=== PATIENT | female | born 1990 | race Native Hawaiian/Other Pacific Islander ===

== ENCOUNTER 2022-12-07 07:11 | Emergency (ER) | payer MEDICAID ==
[~2022-12-07] VITALS: Ht 154.9 cm; Wt 66.7 kg
[2022-12-07 07:48] LABS: MEAN CORPUSCULAR HEMOGLOBIN 30.9 uug (24.7-32.8); PLATELET COUNT (AUTO) 630 K/uL (179-408)
[2022-12-07 07:51] LABS: *BILIRUBIN,URIN NEGATIVE (NEGATIVE); *BLOOD, URINE 2+ (NEGATIVE); *CLARITY,URINE CLEAR (CLEAR); *COLOR,URINE YELLOW (YELLOW); *KETONES,URINE NEGATIVE (NEGATIVE); *UROBILINOGEN,URINE 0.2 E.U./dl (NORMAL); LEUKOCYTE ESTERASE ,URINE 1+ (NEGATIVE); NITRITE, URINE NEGATIVE (NEGATIVE); UGLUCOSE NEGATIVE (NEGATIVE)
[2022-12-07 07:56] LABS: *URINE HCG, QUAL NEG (NEGATIVE)
[2022-12-07 07:57] LABS: CREATININE 0.9 mg/dL (0.6-1.3); POTASSIUM 4.6 mmol/L (3.5-5.1)
[2022-12-07] MEDS ORDERED: IV NORMAL SALINE 1000 ML BAG IV ONE (08:15)
[2022-12-07] MEDS ORDERED: MEDR10TA3 PO (09:41)
[2022-12-07] MEDS ORDERED: TRAM50TA2 PO (09:41)
--- NOTE | 2022-12-07 10:33 | NUR ---
Gave pt RX and d/c instructions, pt verbalized understanding.
--- NOTE | 2022-12-07 10:38 | NUR ---
Bolus of 250ml NS not given, order for different pt.
[2022-12-07 11:17] LABS: BACTERIA,URINE NONE SEEN /HPF (NONE SEEN); SQUAMOUS EPITHELIAL CELL,UR FEW /HPF (NONE SEEN)
== END 2022-12-07 11:40 | disposition home or self-care (01) ==
LOC: ER 07:11
DX: N92.0 Excessive and frequent menstruation with regular cycle (principal); J45.909 Unspecified asthma, uncomplicated; N94.6 Dysmenorrhea, unspecified
CPT/HCPCS: 36415; 76856; 84703; 85025; 85730; A4663